=== PATIENT | male | born 1955 | race Native Hawaiian/Other Pacific Islander ===

== ENCOUNTER 2019-11-20 11:12 | Outpatient (CLI) | payer BC ==
[~2019-11-20 11:12] MED LIST: LEVO0.0723 PO; METF500T PO
[2019-11-20 11:51] LABS: POTASSIUM 3.6 mmol/L (3.6-5.2)
== END 2019-11-20 19:29 | disposition home or self-care (01) ==
LOC: RAD 11:12
PROVIDERS: Nurse Practitioner Family
DX: U07.1 COVID-19 (principal)
CPT/HCPCS: 36415; 80053; 83605; 85379